=== PATIENT | female | born 1990 | race Caucasian/White ===

== ENCOUNTER 2018-03-25 16:50 | Emergency (ER) | payer SELFPAY ==
--- NOTE | 2018-03-25 18:17 | EDPHY ---
H & P Time Seen by Provider: 03/25/18 17:46 HPI/ROS: CHIEF COMPLAINT: C diff colitis HISTORY OF PRESENT ILLNESS: The patient is a 27-year-old female with a history of C diff colitis. Patient states that for 3 months she was on vancomycin intermittently. This would improve her symptoms but then her symptoms return. Patient subsequently was prescribed in her symptoms improved. The patient is followed by a a general practitioner in [place] and Dr. Hanna. She called Dr. Hanna today were told to come to the emergency department to expedite a refill of her prescription. Patient does not feel she needs a workup for her C diff. This feels similar. She is here merely because she requests a prescription of the medication. No fevers or chills. No vomiting. No bloody stools. Patient has had diarrhea for the past 2 weeks. This is nonbloody. REVIEW OF SYSTEMS: My complete review of systems is negative except as mentioned in the HPI. 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 She lives in [place]. Smoking Status: Never smoked Physical Exam: Vitals noted GENERAL: Well-appearing, in no acute distress, alert. HEENT: Eyes normal to inspection, normal pharynx, no signs of dehydration. NECK: [No thyromegaly, no lymphadenopathy, supple. RESPIRATORY: Clear to auscultation bilaterally, no rales, rhonchi or wheezing. CVS: Regular rate and rhythm, no rubs, murmurs, or gallops. ABDOMEN: Soft, minimal diffuse tenderness palpation with no rebound or guarding , nondistended, no organomegaly. BACK: Normal to inspection, no CVA tenderness. SKIN: Normal color, no rash, warm, dry. No pallor. EXTREMITIES: No pedal edema, no calf tenderness, no Homans sign or cords, no joint swelling. NEURO/PSYCH: Alert and oriented x3, normal mood and affect, normal motor sensory exam. Constitutional: Initial Vital Signs Temperature (C) 36.7 C 03/25/18 17:03 Heart Rate 74 03/25/18 17:03 Respiratory Rate 16 03/25/18 17:03 Blood Pressure 131/85 H 03/25/18 17:03 O2 Sat (%) 97 03/25/18 17:03 O2 Delivery Mode Room Air Allergies/Adverse Reactions: bacitracin [From Neosporin ([id number])] Allergy (Verified 03/25/18 17:02) neomycin [From Neosporin ([id number])] Allergy (Verified 03/25/18 17:02) polymyxin B [From Neosporin ([id number])] Allergy (Verified 03/25/18 17:02) Sulfa (Sulfonamide Antibiotics) Allergy (Verified 03/25/18 17:02) Home Medications: Medication Instructions Recorded VIDHIRADHA 03/25/18 Medical Decision Making ED Course/Re-evaluation: In the emergency department I discussed possible etiologies with the patient answered questions. We discussed what her request was in the emergency department. She specifically wants a refill of her prescription. She does not want a workup for C diff at this time. I answered all her questions. Patient was written a prescription for fidoxicin 200 mg bid x 10days. Patient stated she needed pre cleared for this medication previously. I discussed the fact that insurance may not cover for repeat course. If she has difficulty obtain his prescription she will need to go through her primary care physician Dr. Hanna. Differential Diagnosis: My differential includes but is not limited to C diff colitis, abscess, fistula , small-bowel obstruction, perforation, bacteremia, sepsis Departure - Departure Disposition: Home, Routine, Self-Care Clinical Impression: Abdominal pain Qualifiers: Abdominal location: generalized Qualified Code(s): R10.84 - Generalized abdominal pain Condition: Good Instructions: Clostridium Difficile Infection (ED), Acute Abdominal Pain (ED), Colitis (ED) Referrals: NONE *PRIMARY CARE P,. [Primary Care Provider] - As per Instructions
[2018-03-25 18:45] VITALS: BP 110/65
== END 2018-03-25 18:49 | disposition home or self-care (01) ==
DX: R10.84 Generalized abdominal pain (principal)